=== PATIENT | male | born 1965 | race Caucasian/White ===

== ENCOUNTER → 2017-12-07 | Outpatient (CLI) | payer OTHER ==
[2017-12-07 16:59] LABS: BASO % 0.4 %; BASO ABS # 0.03 K/uL (0-0.2); EOS % 1.9 %; EOS ABS # 0.14 K/uL (0-0.5); HEMATOCRIT 46.7 % (42-52); HEMOGLOBIN 16.6 g/dL (14.0-18.0); IG# 0.03 K/uL (0.00-0.02); LYMPH % 27.3 %; LYMPH ABS # 1.99 K/uL (1.2-3.4); MEAN CELL VOLUME 87.6 fL (80-100); MEAN CORPUSCULAR HEMOGLOBIN 31.1 pg (25-34); MEAN CORPUSCULAR HGB CONC 35.5 g/dl (32-36); MEAN PLATELET VOLUME 10.3 fL (7.4-10.4); MONO % 7.8 %; MONO ABS # 0.57 K/uL (0.11-0.59); NEUT % 62.2 %; NEUT ABS # 4.54 K/uL (1.4-6.5); PLATELET COUNT 213 K/uL (130-400); RED CELL DISTRIBUTION WIDTH CV 13.5 % (11.5-14.5)
[2017-12-07 17:08] LABS: ALT/SGPT 39 U/L (12-78); AST/SGOT 20 U/L (15-37); BLOOD UREA NITROGEN 20 mg/dl (7-18); CARBON DIOXIDE 28 mmol/L (21-32); CREATININE 1.03 mg/dl (0.60-1.40); GLUCOSE 86 mg/dl (70-99); SODIUM 138 mmol/L (136-145)
[2017-12-07 17:18] LABS: ALKALINE PHOSPHATASE 110 U/L (45-117); TOTAL PROTEIN 7.7 gm/dl (6.4-8.2)
== END | disposition home or self-care (01) ==
LOC: C.LABBC 12:46
PROVIDERS: ATTEND Nurse Practitioner Adult Health
DX: R00.2 Palpitations (principal)